=== PATIENT | male | born 1960 | race Caucasian/White ===

== ENCOUNTER → 2017-07-05 | Outpatient (CLI) | payer OTHER ==
[2017-07-06 04:40] LABS: LH 5.5 mIU/mL (1.7-8.6)
[2017-07-07 16:36] LABS: Testosterone, Total, LC/MS 313.2 ng/dL (264.0-916.0)
== END ==
LOC: LAB 09:51
PROVIDERS: Internal Medicine
DX: Z51.81 Encounter for therapeutic drug level monitoring (principal)